=== PATIENT | female | born 1965 | race African-American/Black ===

== ENCOUNTER 2024-01-30 08:28 | Inpatient (IN) | payer BC, MEDICAID ==
[~2024-01-30] VITALS: Ht 152.4 cm; Wt 64.9 kg
[2024-01-30] MEDS: PREDNISONE 20MG TABLET PO ONE (09:23)
[2024-01-30 09:25] LABS: BASOPHILS % 0.7 % (0.0-2.0); EOSINOPHILS % 6.1 % (0.0-5.0); HEMATOCRIT. 43.4 % (36.0-48.0); HEMOGLOBIN. 13.5 g/dL (12.0-16.0); LYMPHOCYTES % 24.5 % (20.0-50.0); MEAN CORPUSCULAR HEMOGLOBIN 26.9 pg (28.0-32.0); MEAN CORPUSCULAR HGB CONC 31.2 g/dL (31.0-37.0); MEAN CORPUSCULAR VOLUME 86.2 fL (81.0-99.0); MEAN PLATELET VOLUME 9.2 fl (7.4-10.4); MONOCYTES % 5.2 % (2.0-8.0); NEUTROPHILS % 63.5 % (40.0-76.0); PLATELET 168 x1000/uL (130-400); RED BLOOD CELL COUNT 5.03 mill/uL (4.2-5.4); RED CELL DISTRIBUTION WIDTH 16.7 % (11.6-14.6); WHITE BLOOD COUNT 7.6 x1000/uL (4.5-11.0)
[2024-01-30 09:33] LABS: CHLORIDE 106 mEq/L (98-107); SODIUM 142 mEq/L (136-145)
[2024-01-30 09:34] LABS: CALCIUM 10.4 mg/dL (8.7-10.4); CARBON DIOXIDE 30 mEq/L (21-32)
[2024-01-30 09:35] VITALS: PULSE 80; RESP 24; O2SAT 98
[2024-01-30] MEDS: ALBUTEROL (0.083%) 2.5MG/3ML NEB HHN NR (09:35)
[2024-01-30 09:39] LABS: CREATININE 0.6 mg/dL (0.6-1.0); GLUCOSE 113 mg/dL (70-105); UREA NITROGEN BLOOD 7 mg/dL (9-23)
[2024-01-30 09:49] LABS: POTASSIUM 2.8 mEq/L (3.5-5.1)
[2024-01-30 10:40] VITALS: PULSE 82; RESP 20; O2SAT 96
[2024-01-30] MEDS: METHYLPREDNISOLONE SOD SUCC 125MG/2ML (ACT-O-VIAL) IV STA (10:51)
[2024-01-30] MEDS: POTASSIUM CHLORIDE 20MEQ TABLET SR PO ONE (10:52)
[2024-01-30] MEDS: IPRATROPIUM BROMIDE (0.02%) 0.5MG/2.5ML NEB HHN STA (11:52)
[2024-01-30] MEDS: ALBUTEROL (0.083%) 2.5MG/3ML NEB HHN STA (11:53)
[2024-01-30] MEDS ORDERED: MAGNESIUM/ALUMINUM HYDROXIDE/SIMETHICONE 30ML UDC PO PRN (14:00)
[2024-01-30] MEDS ORDERED: ONDANSETRON HCL 4MG/2ML INJ IV PRN (14:00)
[2024-01-30] MEDS ORDERED: DOCUSATE SODIUM 100MG CAPSULE PO PRN (14:00)
[2024-01-30] MEDS ORDERED: GUAIFENESIN 200MG/10ML SUGAR FREE UDC PO PRN (14:00)
[2024-01-30] MEDS ORDERED: CLONIDINE 0.1MG TABLET PO PRN (14:00)
[2024-01-30] MEDS ORDERED: ACETAMINOPHEN 325MG TABLET PO PRN (14:00)
[2024-01-30] MEDS: POTASSIUM CHLORIDE 20MEQ/PACKET PO NR (14:35)
[2024-01-30 14:40] VITALS: PULSE 84; RESP 20; O2SAT 88
[2024-01-30] MEDS: IPRATROPIUM/ALBUTEROL 0.5-3(2.5)MG/3ML NEB HHN SCH (14:40)
[2024-01-30 16:17] LABS: PHOSPHORUS 3.5 mg/dL (2.5-4.9)
[2024-01-30 17:06] VITALS: PULSE 85; RESP 18; O2SAT 88
[2024-01-30 18:33] VITALS: BP 155/92; PULSE 84; RESP 21; TEMP 36.78072; O2SAT 98
[2024-01-30] MEDS ORDERED: MAGNESIUM 2 G PREMIX 50 ML IV NR (19:30)
[2024-01-30 19:42] LABS: POTASSIUM 3.6 mEq/L (3.5-5.1)
[2024-01-30 20:00] VITALS: BP_SYST 124; BP_SYST 150; BP_DIAS 61; BP_DIAS 90; PULSE 69; PULSE 84; RESP 18; RESP 20; TEMP 36.114; TEMP 36.8072; O2SAT 99
[2024-01-30] MEDS: FAMOTIDINE 20MG TABLET PO SCH (21:42)
[2024-01-31] VITALS (10 sets, daily range): BP systolic 109–144; BP diastolic 69–95; PULSE 70–98; RESP 16–21; TEMP 36.05844–37.55856; O2SAT 97–100
[2024-01-31] MEDS: MAGNESIUM 2 G PREMIX 50 ML IV NR (04:42)
[2024-01-31 06:31] LABS: BASOPHILS % 0.6 % (0.0-2.0); DIFFERENTIAL COMMENT 0; EOSINOPHILS % 0.8 % (0.0-5.0); HEMATOCRIT. 41.7 % (36.0-48.0); HEMOGLOBIN. 13.2 g/dL (12.0-16.0); LYMPHOCYTES % 7.3 % (20.0-50.0); MEAN CORPUSCULAR HEMOGLOBIN 27.2 pg (28.0-32.0); MEAN CORPUSCULAR HGB CONC 31.7 g/dL (31.0-37.0); MEAN CORPUSCULAR VOLUME 85.9 fL (81.0-99.0); MEAN PLATELET VOLUME 11.2 fl (7.4-10.4); MONOCYTES % 4.6 % (2.0-8.0); NEUTROPHILS % 86.7 % (40.0-76.0); PLATELET 203 x1000/uL (130-400); RED BLOOD CELL COUNT 4.86 mill/uL (4.2-5.4); RED CELL DISTRIBUTION WIDTH 16.3 % (11.6-14.6); WHITE BLOOD COUNT 17.1 x1000/uL (4.5-11.0)
[2024-01-31 06:41] LABS: CHLORIDE 106 mEq/L (98-107); POTASSIUM 3.8 mEq/L (3.5-5.1); SODIUM 141 mEq/L (136-145)
[2024-01-31 06:42] LABS: CALCIUM 10.1 mg/dL (8.7-10.4); CARBON DIOXIDE 27 mEq/L (21-32)
[2024-01-31 06:47] LABS: ALBUMIN 4.6 g/dL (3.2-4.8); CREATININE 0.5 mg/dL (0.6-1.0); GLUCOSE 130 mg/dL (70-105); TRIGLYCERIDE 123 mg/dL (0-150); UREA NITROGEN BLOOD 8 mg/dL (9-23)
[2024-01-31 06:48] LABS: LDL CHOLESTEROL 153 mg/dL (5-100); T4 FREE 0.85 ng/dL (0.89-1.76); THYROID STIMULATING HORMONE 0.44 uIU/mL (0.55-4.78)
[2024-01-31 06:49] LABS: CHOLESTEROL 226 mg/dL (<200); HDL CHOLESTEROL 54 mg/dL (>65)
[2024-01-31 06:51] LABS: ALANINE AMINOTRANSFERASE 14 IU/L (10-49); ALBUMIN 4.6 g/dL (3.2-4.8); ASPARTATE AMINOTRANSFERASE 14 IU/L (<34); BILIRUBIN DIRECT 0.3 mg/dL (<=3.0); BILIRUBIN TOTAL 1.1 mg/dL (0.1-1.0); PROTEIN TOTAL 6.5 g/dL (6.0-8.3)
[2024-01-31] MEDS: AMLODIPINE 10MG TABLET PO SCH (08:38)
[2024-01-31] MEDS: BUDESONIDE 0.5MG/2ML NEB HHN SCH (08:47)
[2024-01-31] MEDS: ACETAMINOPHEN 325MG TABLET PO PRN (08:51)
[2024-01-31] MEDS: IPRATROPIUM/ALBUTEROL 0.5-3(2.5)MG/3ML NEB HHN SCH (20:58)
[2024-01-31] MEDS: FLUTICASONE PROPIONATE 50MCG/SPRAY BOTTLE BOTHNSTRLS SCH (21:00)
[2024-01-31] MEDS: ENOXAPARIN 40MG/0.4ML SYR SUBCUT SCH (21:17)
[2024-01-31] MEDS: ATORVASTATIN CALCIUM 20MG TABLET PO SCH (21:18)
[2024-01-31] MEDS: PREDNISONE 20MG TABLET PO SCH (21:18)
[2024-01-31] MEDS: LORATADINE 10MG TABLET PO SCH (21:19)
[2024-02-01] VITALS (7 sets, daily range): BP systolic 110–134; BP diastolic 69–76; PULSE 72–89; RESP 18–20; TEMP 36.55848–37.33632; O2SAT 96–97
[2024-02-01 08:44] LABS: CARBON DIOXIDE 26 mEq/L (21-32); CHLORIDE 107 mEq/L (98-107); POTASSIUM 4.5 mEq/L (3.5-5.1); SODIUM 140 mEq/L (136-145)
[2024-02-01 08:45] LABS: CALCIUM 9.9 mg/dL (8.7-10.4)
[2024-02-01 08:50] LABS: CREATININE 0.6 mg/dL (0.6-1.0); GLUCOSE 128 mg/dL (70-105); UREA NITROGEN BLOOD 8 mg/dL (9-23)
[2024-02-01 08:51] LABS: HEMATOCRIT 45.4 % (36.0-48.0); HEMOGLOBIN 14.7 g/dL (12.0-16.0); MEAN CORPUSCULAR HEMOGLOBIN 27.9 pg (28.0-32.0); MEAN CORPUSCULAR HGB CONC 32.3 g/dL (31.0-37.0); MEAN CORPUSCULAR VOLUME 86.3 fL (81.0-99.0); PLATELET 227 x1000/uL (130-400); RED BLOOD CELL COUNT 5.26 mill/uL (4.2-5.4); RED CELL DISTRIBUTION WIDTH 16.9 % (11.6-14.6); WHITE BLOOD COUNT 14.1 x1000/uL (4.5-11.0)
[2024-02-01 08:52] LABS: ALANINE AMINOTRANSFERASE 13 IU/L (10-49); ALBUMIN 4.8 g/dL (3.2-4.8); ASPARTATE AMINOTRANSFERASE 16 IU/L (<34); BILIRUBIN TOTAL 0.8 mg/dL (0.1-1.0); PROTEIN TOTAL 7.2 g/dL (6.0-8.3); T4 FREE 1.21 ng/dL (0.89-1.76); THYROID STIMULATING HORMONE 0.48 uIU/mL (0.55-4.78)
[2024-02-01] MEDS ORDERED: CETI10CA11 PO (15:29)
[2024-02-01] MEDS ORDERED: ALBU18HF2 IH (15:29)
[2024-02-01] MEDS ORDERED: MONT-46 PO (15:29)
[2024-02-01] MEDS ORDERED: AMLO10TA80 PO (15:29)
[2024-02-01] MEDS ORDERED: ATOR20TA PO (15:29)
[2024-02-01] MEDS ORDERED: TIOT4MIS8 INH (15:29)
[2024-02-01] MEDS ORDERED: P20 PO (15:29)
[2024-02-01] MEDS ORDERED: MONTELUKAST SODIUM 10MG TABLET PO SCH (17:00)
== END 2024-02-01 17:05 | disposition home or self-care (01) | DRG 202 ==
LOC: EDBD 08:28 → ER 08:28 → 5WST 13:05 → EDBEDREQTM 13:22 → EDBEDREQ 13:22 → 7WST 19:32
PROVIDERS: ADMIT Internal Medicine; ATTEND Internal Medicine
DX: J20.9 Acute bronchitis, unspecified (principal); J45.901 Unspecified asthma with (acute) exacerbation; E78.5 Hyperlipidemia, unspecified; E83.42 Hypomagnesemia; E87.6 Hypokalemia; Z88.0 Allergy status to penicillin; F17.210 Nicotine dependence, cigarettes, uncomplicated; E03.8 Other specified hypothyroidism; D72.10 Eosinophilia, unspecified; J30.9 Allergic rhinitis, unspecified; I11.0 Hypertensive heart disease with heart failure
CPT/HCPCS: 36415; 71045; 80048; 80053; 80061; 80076; 82040; 83735; 84100; 84132; 84439; 84443; 85025; 85027; 93005; 94640; 99291; J1650; J2919; J3475; J7512; J7626

== ENCOUNTER 2024-04-16 11:33 | Emergency (ER) | payer BC, MEDICAID ==
[~2024-04-16] VITALS: Ht 152.4 cm; Wt 64.0 kg
[~2024-04-16 11:33] MED LIST: ALBU18HF2 IH; AMLO10TA80 PO; ATOR20TA PO; CETI10CA11 PO; MONT-46 PO; P20 PO; TIOT4MIS8 INH
[2024-04-16 11:54] VITALS: O2SAT 98
[2024-04-16] MEDS ORDERED: KETO10TA2 MT (16:39)
[2024-04-16 17:12] VITALS: BP 150/88; PULSE 90; RESP 16; TEMP 36.55848; O2SAT 98
== END 2024-04-16 17:13 | disposition home or self-care (01) ==
LOC: ER 11:42
DX: M71.21 Synovial cyst of popliteal space [Baker], right knee (principal); J45.909 Unspecified asthma, uncomplicated; Z88.0 Allergy status to penicillin; Z79.899 Other long term (current) drug therapy
CPT/HCPCS: 93971; 99284

== ENCOUNTER 2025-06-11 09:28 | Inpatient (IN) | payer BC, MEDICAID ==
[~2025-06-11] VITALS: Ht 165.1 cm; Wt 69.9 kg
[2025-06-11] VITALS (7 sets, daily range): BP systolic 126–137; BP diastolic 73–85; PULSE 78–101; RESP 17–21; TEMP 36.4–36.4736; O2SAT 94–100
[~2025-06-11 09:28] MED LIST changes: +KETO10TA2 MT
[2025-06-11] MEDS: SODIUM CHLORIDE 0.9% (SEPSIS BOLUS) IV ONE (10:02)
[2025-06-11] MEDS: IPRATROPIUM BROMIDE (0.02%) 0.5MG/2.5ML NEB HHN SCH (10:09)
[2025-06-11] MEDS: ALBUTEROL (0.083%) 2.5MG/3ML NEB HHN SCH (10:10)
[2025-06-11 10:16] LABS: BASOPHILS % 1.3 % (0.0-2.0); EOSINOPHILS % 7.4 % (0.0-5.0); HEMATOCRIT. 37.8 % (36.0-48.0); HEMOGLOBIN. 12.0 g/dL (12.0-16.0); LYMPHOCYTES % 16.2 % (20.0-50.0); MEAN PLATELET VOLUME 9.5 fl (7.4-10.4); MONOCYTES % 5.3 % (2.0-8.0); NEUTROPHILS % 69.8 % (40.0-76.0); PLATELET 164 x1000/uL (130-400); RED BLOOD CELL COUNT 5.02 mill/uL (4.2-5.4); RED CELL DISTRIBUTION WIDTH 19.0 % (11.6-14.6)
[2025-06-11] MEDS: METHYLPREDNISOLONE SOD SUCC 125MG/2ML (ACT-O-VIAL) IV ONE (10:16)
[2025-06-11 10:28] LABS: INR 1.0
[2025-06-11 10:34] LABS: CREATININE 0.6 mg/dL (0.6-1.0); UREA NITROGEN BLOOD < 5 mg/dL (9-23)
[2025-06-11 10:35] LABS: ETHANOL BLOOD < 10 mg/dL (<10); PROTEIN TOTAL 7.7 g/dL (6.0-8.3)
[2025-06-11 10:36] LABS: ASPARTATE AMINOTRANSFERASE 20 IU/L (<34); BILIRUBIN DIRECT 0.4 mg/dL (<=3.0); TROPONIN I HIGH SENSITIVITY < 4 ng/L (3.0-34)
[2025-06-11 10:37] LABS: BILIRUBIN TOTAL 1.3 mg/dL (0.1-1.0)
[2025-06-11] MEDS: GENTAMICIN 80MG PREMIX 100 ML IV ONE (10:44)
[2025-06-11 11:57] LABS: CLARITY URINE CLEAR (CLEAR); COLOR URINE YELLOW (YELLOW); GLUCOSE URINE NEGATIVE (NEGATIVE); KETONES URINE NEGATIVE (NEGATIVE); LEUKOCYTE ESTERASE URINE NEGATIVE (NEGATIVE); NITRITE URINE NEGATIVE (NEGATIVE); OCCULT BLOOD URINE TRACE (NEGATIVE); PH URINE 6.0 (4.5-8.0); PROTEIN URINE 1+ (NEGATIVE); SPECIFIC GRAVITY URINE 1.010 (1.005-1.030); UROBILINOGEN URINE 0.2 E.U./dL (0.2-1.0)
[2025-06-11] MEDS ORDERED: POTASSIUM CHLORIDE 20MEQ/PACKET PO NR (12:15)
[2025-06-11 12:28] LABS: SQUAMOUS EPITHELIAL CELL URINE FEW /lpf (RARE/1+)
[2025-06-11 12:29] LABS: RBC URINE 0-2 /hpf (0-2); WBC URINE 0-2 /hpf (0-2)
[2025-06-11 12:30] LABS: BACTERIA URINE NONE SEEN
[2025-06-11] MEDS ORDERED: ONDANSETRON HCL 4MG/2ML INJ IV PRN (12:45)
[2025-06-11] MEDS ORDERED: HYDROCODONE/ACETAMINOPHEN 5/325MG TABLET PO PRN (12:45)
[2025-06-11] MEDS ORDERED: ZOLPIDEM TARTRATE 5MG TABLET PO PRN (12:45)
[2025-06-11] MEDS ORDERED: MAGNESIUM/ALUMINUM HYDROXIDE/SIMETHICONE 30ML UDC PO PRN (12:45)
[2025-06-11] MEDS ORDERED: CLONIDINE 0.1MG TABLET PO PRN (12:45)
[2025-06-11] MEDS ORDERED: MORPHINE SULFATE 2 MG/ML INJ (NOT FOR IM USE) IV PRN (12:45)
[2025-06-11 12:57] LABS: BG BASE EXCESS -3.2 mmol/L (-2.0-3.0); BG CARBOXYHEMOGLOBIN 0.9 % (0.5-1.5); BG DEOXYHEMOGLOBIN 6.3 % (0.0-5.0); BG FRACTION INSPIRED OXYGEN 21; BG HCO3 ACT 20.8 mmol/L (21.0-28.0); BG METHEMOGLOBIN 0.3 % (0.5-1.5); BG OXYGEN SATURATION 93.6 % (94.0-98.0); BG OXYHEMOGLOBIN 92.5 % (94.0-98.0); BG PCO2 33.5 mmHg (32.0-45.0); BG PH 7.410 (7.350-7.450); BG PO2 66.3 mmHg (83.0-108.0); BG SAMPLE SITE RIGHT BRACHIAL; BG TOTAL HEMOGLOBIN 11.9 g/dL (12.0-16.0); BG VENT MODE ROOM AIR
[2025-06-11] MEDS ORDERED: NALOXONE HCL 0.4MG/ML VIAL IV PRN (13:00)
[2025-06-11] MEDS: IPRATROPIUM/ALBUTEROL 0.5-3(2.5)MG/3ML NEB NEB SCH (13:49)
[2025-06-11] MEDS: ENOXAPARIN 40MG/0.4ML SYR SUBCUT SCH (14:00)
[2025-06-11] MEDS: METHYLPREDNISOLONE SOD SUCC 40MG/ML (ACT-O-VIAL) IV SCH (17:57)
[2025-06-11] MEDS: MONTELUKAST SODIUM 10MG TABLET PO SCH (20:48)
[2025-06-11] MEDS: ATORVASTATIN CALCIUM 20MG TABLET PO SCH (20:48)
[2025-06-11 21:02] LABS: *AMPHETAMINES SCREEN URINE NEGATIVE (NEGATIVE); *BARBITURATES SCREEN URINE NEGATIVE (NEGATIVE); *BENZODIAZEPINES SCREEN URINE NEGATIVE (NEGATIVE); *COCAINE SCREEN URINE NEGATIVE (NEGATIVE); CANNABINOID URINE SCREEN PRESUMPTIVE POSITIVE (NEGATIVE); ECSTASY MDMA SCREEN URINE NEGATIVE (NEGATIVE); METHADONE URINE SCREEN NEGATIVE (NEGATIVE); OPIATES URINE SCREEN NEGATIVE (NEGATIVE); PHENCYCLIDINE URINE SCREEN NEGATIVE (NEGATIVE)
[2025-06-11 22:50] LABS: CLARITY URINE CLEAR (CLEAR); COLOR URINE STRAW (YELLOW); GLUCOSE URINE NEGATIVE (NEGATIVE); KETONES URINE NEGATIVE (NEGATIVE); LEUKOCYTE ESTERASE URINE NEGATIVE (NEGATIVE); NITRITE URINE NEGATIVE (NEGATIVE); OCCULT BLOOD URINE NEGATIVE (NEGATIVE); PH URINE 5.5 (4.5-8.0); PROTEIN URINE NEGATIVE (NEGATIVE); SPECIFIC GRAVITY URINE <1.005 (1.005-1.030); UROBILINOGEN URINE 0.2 E.U./dL (0.2-1.0)
[2025-06-12] VITALS (11 sets, daily range): BP systolic 132–138; BP diastolic 82–87; PULSE 86–103; RESP 15–21; TEMP 36.1–37.1; O2SAT 64–98
[2025-06-12] MEDS: ACETAMINOPHEN 325MG TABLET PO PRN (05:56)
[2025-06-12 07:23] LABS: CREATININE 0.6 mg/dL (0.6-1.0); UREA NITROGEN BLOOD 7 mg/dL (9-23)
[2025-06-12 07:40] LABS: HEMATOCRIT. 36.0 % (36.0-48.0); HEMOGLOBIN. 11.4 g/dL (12.0-16.0); MEAN PLATELET VOLUME 10.3 fl (7.4-10.4); PLATELET 182 x1000/uL (130-400); RED BLOOD CELL COUNT 4.80 mill/uL (4.2-5.4); RED CELL DISTRIBUTION WIDTH 18.9 % (11.6-14.6)
[2025-06-12] MEDS: PANTOPRAZOLE SODIUM 40 MG/VIAL IV SCH (09:00)
[2025-06-12] MEDS: AMLODIPINE 10MG TABLET PO SCH (10:05)
[2025-06-12 19:30] LABS: BAND% 2.0 % (1.0-6.0); EOSINOPHILS % MANUAL 2.0 % (0.0-5.0); LYMPHOCYTES % MANUAL 7.0 % (20.0-60.0); MONOCYTES % MANUAL 6.0 % (2.0-8.0); NEUTROPHILS % MANUAL 83.0 % (45.0-75.0); PLATELET ESTIMATE NORMAL
[2025-06-13] VITALS (9 sets, daily range): BP systolic 122–134; BP diastolic 81–91; PULSE 79–111; RESP 16–20; TEMP 36.3–36.5; O2SAT 93–98
[2025-06-13] MEDS ORDERED: P20 PO (09:39)
[2025-06-13] MEDS ORDERED: MONT-46 PO (09:39)
[2025-06-13] MEDS ORDERED: AMLO10TA80 PO (09:39)
[2025-06-13] MEDS ORDERED: IPRA3AMP9 NEB (09:39)
[2025-06-13] MEDS ORDERED: ALBU18HF2 IH (09:39)
[2025-06-13] MEDS ORDERED: FLUT1BLS3 INH (09:39)
[2025-06-13] MEDS ORDERED: ATOR20TA PO (09:39)
[2025-06-13] MEDS ORDERED: LEVO750T68 MT (09:40)
== END 2025-06-13 13:57 | disposition home or self-care (01) | DRG 190 ==
LOC: ER 09:28 → 6WST 12:14 → EDBEDREQTM 12:21 → EDBEDREQ 12:21 → ENRESERV 13:05
PROVIDERS: ADMIT Internal Medicine; ATTEND Internal Medicine
DX: J44.1 Chronic obstructive pulmonary disease with (acute) exacerbation (principal); J96.91 Respiratory failure, unspecified with hypoxia; J45.901 Unspecified asthma with (acute) exacerbation; I10 Essential (primary) hypertension; E87.6 Hypokalemia; E78.00 Pure hypercholesterolemia, unspecified; Z55.6 Problems related to health literacy; Z88.0 Allergy status to penicillin
CPT/HCPCS: 36415; 36600; 71045; 80048; 80076; 80305; 80320; 81003; 82375; 82805; 83605; 84145; 84443; 84484; 85025; 93005; 93970; 94070; 94640; 94664; 96361; 96365; 99291; A4606; A4615; J1580; J1650; J2470; J2919; J7030; G0480